=== PATIENT | female | born 1955 | race Caucasian/White ===

== ENCOUNTER 2017-07-25 06:34 | Emergency (ER) | payer OTHER ==
[~2017-07-25] VITALS: Ht 172.7 cm; Wt 110.4 kg
[~2017-07-25 06:34] MED LIST: AMBIEN5 MG PO; AMOXICILLIN500 MG PO; ANTIVERT25 MG PO; ASPIRIN325 MG PO; BUSPAR15 MG; BUSPAR15 MG PO; CELEXA20 MG PO; CITALOPRAM HBR20 MG; COBAL-10001000 MCG/2 IM; CYANOCOBAL1000 MCG/2 IM; CYANOCOBALAMIN 1,000; DUEXIS 800-26.1 EACH PO; EFFEXOR XR150 MG PO; EXCEDRIN MIGRA1 EAC3 PO; FLOMAX0.4 MG PO; Feosol PO; IRON SUPPLEMENT PO; MOTRIN800 MG PO; OXAYDO5 MG PO; OXYCODONE-ACET1 EACH PO; PROTONIX40 MG PO; RANITIDINE HCL150 MG PO; TOPAMAX25 MG PO; ULTRAM50 MG PO; VALIUM5 MG PO; VENLAFAXINE HCL75 MG PO; ZOFRAN4 MG PO
[2017-07-25] MEDS ORDERED: PREDNISONE20 MG PO (08:03)
[2017-07-25 08:13] VITALS: BP 152/89
== END 2017-07-25 08:13 | disposition home or self-care (01) ==
LOC: EME 06:34
DX: G56.01 Carpal tunnel syndrome, right upper limb (principal); M79.641 Pain in right hand; K21.9 Gastro-esophageal reflux disease without esophagitis; Z87.891 Personal history of nicotine dependence
CPT/HCPCS: 73130; 99281; 99284; J7512

== ENCOUNTER 2017-08-28 09:44 | Emergency (ER) | payer OTHER ==
[~2017-08-28] VITALS: Ht 172.7 cm; Wt 109.5 kg
[~2017-08-28 09:44] MED LIST changes: +PREDNISONE20 MG PO
[2017-08-28 10:24] LABS: HEMATOCRIT 39.3 % (36.0-46.0); MCHC 32.1 G/DL (30.0-36.0); MCV 84.3 FL (83-99); MEAN PLAT.VOLUME 10.9 uM^3 (9.5-12.4); PLATELET COUNT 273 K/uL (156-360); RBC DIS.WIDTH-CV 15.1 % (11.8-14.6); RBC DIS.WIDTH-SD 45.9 % (39-53); RED BLOOD COUNT 4.66 M/uL (3.80-5.20); WHITE BLOOD COUNT 11.7 K/uL (4.1-10.2)
[2017-08-28 10:36] LABS: CHLORIDE 107 mEq/L (99-109); POTASSIUM 4.3 mEq/L (3.7-5.4); SODIUM 141 mEq/L (136-147)
[2017-08-28 10:38] LABS: GLUCOSE 94 mg/dL (70-99)
[2017-08-28 10:39] LABS: ANION GAP 11 MEQ/L (2-14)
[2017-08-28 10:42] LABS: GFR ESTIMATE (CALCULATED) > 59 mL/min/; UREA NITROGEN (BUN) 15 mg/dL (9-23)
[2017-08-28 10:49] LABS: TROP-I INTERPRETATION NEGATIVE; TROPONIN-I < 0.01 ng/mL (0.0-0.30)
[2017-08-28 14:08] LABS: TROP-I INTERPRETATION NEGATIVE; TROPONIN-I < 0.01 ng/mL (0.0-0.30)
[2017-08-28 14:53] VITALS: BP 113/70
== END 2017-08-28 14:55 | disposition home or self-care (01) ==
LOC: EME 09:44
PROVIDERS: Physician Assistant
DX: R07.89 Other chest pain (principal); F41.9 Anxiety disorder, unspecified; F32.9 Major depressive disorder, single episode, unspecified; K21.9 Gastro-esophageal reflux disease without esophagitis; Z87.891 Personal history of nicotine dependence
CPT/HCPCS: 71020; 80048; 84484; 85027; 93005; 99281; 99283